=== PATIENT | female | born 1970 | race Asian ===

== ENCOUNTER → 2019-08-09 09:26 | Outpatient (CLI) | payer SELFPAY ==
--- NOTE | 2019-08-09 09:31 | DI.MG.S_ITS ---
BILATERAL DIGITAL DIAGNOSTIC MAMMOGRAM 3D/2D: 08/09/2019 CLINICAL: Short term follow up recommened from prior study, late follow up, due bilaterally. Comparison is made to exams dated: 09/20/2018 mammogram, 09/05/2018 mammogram, and 05/26/2014 mammogram - outside location. There are scattered fibroglandular elements in both breasts. There is an oval low density asymmetry with an obscured and circumscribed margin in the right breast anterior depth medial region seen on the craniocaudal view only. This is not significantly changed. No other significant masses, calcifications, or other findings are seen in either breast. IMPRESSION: INCOMPLETE: NEEDS ADDITIONAL IMAGING EVALUATION The oval low density asymmetry in the right breast is indeterminate. An ultrasound is recommended. This exam was interpreted at Station ID: [id number]. NOTE: For mammograms, a report in lay terms will be sent to the patient. Approximately 15% of breast malignancies will not be visualized mammographically. In the management of a palpable breast mass, a negative mammogram must not discourage biopsy of a clinically suspicious lesion. Electronically Signed By: Kelvin mathur/renee:08/09/2019 10:18:11 ACR BI-RADS Category 0: Incomplete [id number]
--- NOTE | 2019-08-09 09:31 | DI.US.S_ITS ---
LIMITED ULTRASOUND OF RIGHT BREAST: 08/09/2019 CLINICAL: Follow-up of cyst. Comparison is made to exams dated: 08/09/2019 mammogram - [facility], 09/20/2018 mammogram, 09/20/2018 ultrasound, 09/05/2018 mammogram, 05/26/2014 mammogram, and 06/06/2013 mammogram - outside location. Real-time ultrasound of the right breast 2 o'clock region was performed on the area of interest. There is a 0.2 cm x 0.3 cm x 0.2 cm oval cyst in the right breast at 2 o'clock middle depth. This oval cyst is hypoechoic with internal echoes and posterior acoustic enhancement. This abnormality is decreased in size and correlates with mammography findings. Color flow imaging demonstrates that there is no vascularity present. IMPRESSION: PROBABLY BENIGN The 0.2 cm x 0.3 cm x 0.2 cm oval cyst in the right breast is probably benign. A follow-up ultrasound in 6 months is recommended. A follow-up ultrasound in 6 months is recommended to demonstrate stability. This exam was interpreted at Station ID: [id number]. Electronically Signed By: Kelvin mathur/renee:08/09/2019 11:28:35 letter sent: Followup Recommended Ultrasound BI-RADS: 3 Probably benign
== END ==
PROVIDERS: PCP Family Medicine; Referring Provider Family Medicine; Visit Provider Family Medicine
DX: R92.8 Other abnormal and inconclusive findings on diagnostic imaging of breast (principal); N60.01 Solitary cyst of right breast
CPT/HCPCS: 76642; 77066; G0279

== ENCOUNTER → 2019-09-25 11:28 | Outpatient (CLI) | payer SELFPAY ==
[2019-09-25 12:32] LABS: Add Manual Diff / Slide Review NO; Basophils Absolute Auto 100 /uL (0-100); Basophils Percent Auto 0.6 % (0-2); Eosinophils Absolute Auto 100 /uL (0-450); Eosinophils Percent Auto 0.6 % (2-4); Hematocrit 39.3 % (36-46); Hemoglobin 13.5 g/dL (12.0-16.0); Lymphocytes Absolute Auto 2100 /uL (1100-4500); Lymphocytes Percent Auto 21.5 % (25-40); Mean Corpuscular HGB Conc 34.5 % (30-36); Mean Corpuscular Hemoglobin 31.1 PG (26-34); Mean Corpuscular Volume 90.3 fL (80-100); Monocytes Absolute Auto 600 /uL (0-900); Monocytes Percent Auto 6.1 % (3-14); Neutrophils Absolute Auto 7100 /uL (1500-7000); Neutrophils Percent Auto 71.2 % (50-75); Platelet Count 271 X10^3/uL (150-400); Red Blood Cell Count 4.35 X10^6/uL (4.0-5.2); Red Cell Distribution Width 13.1 % (11.6-14.8)
[2019-09-25 12:55] LABS: Alanine Aminotransferase 27 IU/L (<35); Albumin 4.8 g/dL (3.5-5.0); Albumin Globulin Ratio 1.5 (1.0-2.8); Alkaline Phosphatase 58 U/L (38-126); Aspartate Aminotransferase 38 IU/L (14-36); Bilirubin Total 0.6 mg/dL (0.2-1.3); Blood Urea Nitrogen 12 mg/dL (7-17); Calcium 9.8 mg/dL (8.4-10.2); Carbon Dioxide 25 mmol/L (22-32); Chloride 103 mmol/L (98-107); Estimated Glomerular Filt Rate > 60.0 mL/min (>60); Globulin 3.3 g/dL (1.7-4.1); Glucose 96 mg/dL (70-100); HEMOLYSIS < 15 (0-50); Potassium 3.5 mmol/L (3.4-5.1); Sodium 138 mmol/L (137-145); Total Protein 8.1 g/dL (6.3-8.2)
[2019-09-25 13:26] LABS: TSH w/ Reflex to FT4 1.79 uIU/mL (0.47-4.68)
== END ==
PROVIDERS: PCP Family Medicine; Referring Provider Family Medicine; Visit Provider Family Medicine
DX: F41.9 Anxiety disorder, unspecified (principal); G47.00 Insomnia, unspecified; R00.2 Palpitations
CPT/HCPCS: 36415; 80053; 84443; 85025

== ENCOUNTER → 2020-04-15 10:07 | Outpatient (CLI) | payer SELFPAY ==
[2020-04-15 10:41] LABS: Hemoglobin A1C% w Est Avg Glu 5.2 % (4.0-6.0)
[2020-04-15 10:59] LABS: Creatinine Urine Random 180.1 mg/dL
[2020-04-15 11:03] LABS: Microalbumi Creatinin Ratio Ur 11.6 ug/mg CR (<30); Microalbumin Urine Random 2.1 mg/dL (0-1.6)
[2020-04-15 11:06] LABS: Alanine Aminotransferase 20 IU/L (<35); Albumin 4.4 g/dL (3.5-5.0); Albumin Globulin Ratio 1.3 (1.0-2.8); Alkaline Phosphatase 50 U/L (38-126); Aspartate Aminotransferase 31 IU/L (14-36); BUN Creatinine Ratio 23.8 (6-22); Bilirubin Total 0.5 mg/dL (0.2-1.3); Blood Urea Nitrogen 15 mg/dL (7-17); Calcium 9.3 mg/dL (8.4-10.2); Carbon Dioxide 32 mmol/L (22-32); Chloride 103 mmol/L (98-107); Cholesterol 169 mg/dL (140-199); Estimated Glomerular Filt Rate > 60.0 mL/min (>60); Globulin 3.3 g/dL (1.7-4.1); Glucose 96 mg/dL (70-100); HDL Cholesterol 34 mg/dL (40-60); HEMOLYSIS < 15 (0-50); LDL Cholesterol Calculated 101 mg/dL (<100); Potassium 3.3 mmol/L (3.4-5.1); Sodium 140 mmol/L (137-145); Total Protein 7.7 g/dL (6.3-8.2); Triglycerides 170 mg/dL (35-150)
== END ==
PROVIDERS: PCP Family Medicine; Referring Provider Family Medicine; Visit Provider Family Medicine
DX: I10 Essential (primary) hypertension (principal); R73.9 Hyperglycemia, unspecified
CPT/HCPCS: 36415; 80053; 80061; 82043; 82570; 83036

== ENCOUNTER → 2021-02-24 12:05 | Outpatient (CLI) | payer SELFPAY ==
[2021-02-24 12:33] LABS: Hemoglobin A1C% w Est Avg Glu 5.2 % (4.0-6.0)
== END ==
PROVIDERS: PCP Family Medicine; Referring Provider Family Medicine; Visit Provider Family Medicine
DX: I10 Essential (primary) hypertension (principal); R73.9 Hyperglycemia, unspecified
CPT/HCPCS: 36415; 83036